=== PATIENT | male | born 1990 | race Two or more races ===

== ENCOUNTER 2018-08-31 00:42 | Emergency (ER) | payer MEDICAID ==
[~2018-08-31] VITALS: Ht 180.3 cm; Wt 145.1 kg
[2018-08-31 01:00] VITALS: BP 109/57
--- NOTE | 2018-08-31 01:57 | Emergency Room Report ---
History of Present Illness General Chief Complaint: Alcohol Intoxication Source: EMS Present Illness HPI Is a 28-year-old male brought in by EMS for alcohol intoxication. He was at a bar with his friend has been drinking heavily tonight. Because of his altered mental status, his friend called 911. There is no trauma. Unable to get any history from the patient because of his alcohol intoxication. Allergies: Coded Allergies: UNABLE TO ASSESS (Unverified , 08/31/18) Patient History Past Medical History: see triage record, old chart reviewed, unable to obtain Past Surgical History: unable to obtain Pertinent Family History: unable to obtain Social History: Reports: alcohol use Nursing Documentation-[facility] Past Medical History Deferred: Patient Unconscious Review of Systems All Other Systems: limited - secondary to intoxication Physical Exam Vital Signs Date Time Temp Pulse Resp B/P (MAP) Pulse Ox O2 Delivery O2 Flow Rate FiO2 08/31/18 00:42 98.4 117 18 111/54 96 Room Air 98.4 Sp02 EP Interpretation: reviewed, normal General Appearance: well appearing, no apparent distress, other - heavily intoxicated Head: normocephalic, atraumatic Eyes: bilateral eye PERRL, bilateral eye EOMI ENT: hearing grossly normal, normal pharynx Neck: full range of motion, supple, no meningismus Respiratory: chest non-tender, lungs clear, normal breath sounds Cardiovascular #1: regular rate, rhythm, no murmur Gastrointestinal: normal bowel sounds, non tender, no mass, no organomegaly, no bruit, non-distended Musculoskeletal: back normal, normal range of motion Neurologic: grossly normal Psychiatric: mood/affect normal Skin: warm/dry Medical Decision Making Diagnostic Impression: Primary Impression: Acute alcoholic intoxication Qualified Codes: F10.929 - Alcohol use, unspecified with intoxication, unspecified ER Course Patient with alcohol intoxication. We'll observe until clinical sobriety. No trauma to warrant CT scan or x-ray. We'll discharge home when he is more sober. Last Vital Signs Date Time Temp Pulse Resp B/P (MAP) Pulse Ox O2 Delivery O2 Flow Rate FiO2 08/31/18 00:42 98.4 117 18 111/54 96 Room Air 98.4 Status: improved Disposition: HOME, SELF-CARE Condition: Stable Patient Instructions: Alcohol Intoxication, [id number] Additional Instructions: Follow-up with your doctor in 7 days. Abstain from drinking to excess. Return if worse. Vinny Holloway MD Aug 31, 2018 01:57
[2018-08-31 03:19] VITALS: BP 105/62
[2018-08-31 04:46] VITALS: BP 104/55
[2018-08-31 06:11] VITALS: BP 109/67
[2018-08-31 07:31] VITALS: BP 95/48
[2018-08-31 09:40] VITALS: BP 110/68
== END 2018-08-31 09:41 | disposition home or self-care (01) ==
LOC: EDBD 00:42 → EMR 01:26
DX: F10.929 Alcohol use, unspecified with intoxication, unspecified (principal); R41.82 Altered mental status, unspecified
CPT/HCPCS: 36415; 80329; 99283